=== PATIENT | female | born 1990 | race Caucasian/White ===

== ENCOUNTER 2018-04-10 22:43 | Emergency (ER) | payer MEDICAID ==
[2018-04-10 22:43] VITALS: BMI 26.2
[2018-04-10 22:51] VITALS: BP 107/71
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
[2018-04-11 00:58] VITALS: PULSE 77; RESP 16; TEMP 98; O2SAT 100
== END 2018-04-11 00:56 | disposition home or self-care (01) ==
LOC: C.ER 22:43
DX: G44.009 Cluster headache syndrome, unspecified, not intractable (principal)